=== PATIENT | female | born 1975 | race Caucasian/White ===

== ENCOUNTER 2019-05-19 22:25 | Emergency (ER) | payer MEDICAID ==
[~2019-05-19] VITALS: Ht 170.2 cm; Wt 72.6 kg
[2019-05-19 22:33] VITALS: Ht 170.2 cm; Wt 72.6 kg
[2019-05-19 23:18] VITALS: BP 131/77
[2019-05-19 23:27] LABS: BASOPHIL % 0.4 % (0-2); PLATELET COUNT 285 x10^3mcL (130-400); RED CELL DISTRIBUTION WIDTH 13.2 % (11.5-14.5)
[2019-05-19 23:31] LABS: CALCIUM 8.6 mg/dL (8.5-10.1); CARBON DIOXIDE 23.5 mmol/L (21-32); CHLORIDE SERUM 109 mmol/L (98-107); CREATININE SERUM 0.8 mg/dL (0.6-1.0); GFR1 > 60 mL/min; GLUCOSE SERUM 110 mg/dL (74-106); SODIUM SERUM 143 mmol/L (136-145)
[2019-05-19 23:35] LABS: ALBUMIN 3.8 g/dL (3.4-5.0); ALKALINE PHOSPHATASE 73 U/L (46-116); ALT/SGPT 22 U/L (14-59); AST/SGOT 14 U/L (15-37); BILIRUBIN TOTAL 0.3 mg/dL (0.20-1.00); TOTAL PROTEIN, SERUM 7.2 g/dL (6.4-8.2)
== END 2019-05-19 22:41 | disposition home or self-care (01) ==
LOC: ED 22:25
PROVIDERS: Emergency Medicine
DX: R07.81 Pleurodynia (principal); R42 Dizziness and giddiness
CPT/HCPCS: 36415; 90715; J8597; Q0092

== ENCOUNTER 2020-09-08 00:32 | Emergency (ER) | payer MEDICAID ==
[~2020-09-08] VITALS: Ht 170.2 cm; Wt 72.6 kg
[2020-09-08 00:38] VITALS: Ht 170.2 cm; Wt 72.6 kg
[2020-09-08] MEDS ORDERED: ULTRAM50 MG PO (02:03)
[2020-09-08 02:17] VITALS: BP 110/68
== END 2020-09-08 02:17 | disposition home or self-care (01) ==
LOC: ED 00:32
DX: G43.909 Migraine, unspecified, not intractable, without status migrainosus (principal)
CPT/HCPCS: J0780; J1885